=== PATIENT | female | born 1965 | race Caucasian/White ===

== ENCOUNTER 2017-12-20 15:22 | Emergency (ER) | payer OTHER ==
[2017-12-20] MEDS ORDERED: LORAZEPAM 1 MG TABLET ONE (16:09)
--- NOTE | 2017-12-20 16:58 | ER ---
Nurse's Notes [facility] Name: Jessenia Klein Age: 51 yrs Sex: Female : 1965 Arrival Date: 12/20/2017 Time: 15:35 Bed 25 Private MD: Diagnosis: Anxiety disorder, unspecified Presentation: 12/20 15:35 Presenting complaint: Patient states: :I am bipolar, and I feel like I am going manic, hb I am going into a panic.". Transition of care: patient was not received from another setting of care. Onset of symptoms was December 20, 2017. Care prior to arrival: None. 15:35 Method Of Arrival: Ambulatory hb 15:35 Acuity: JASMIN 3 hb 17:38 Initial Sepsis Screen: Does the patient meet any 2 criteria? No. Patient's initial aj1 sepsis screen is negative. Does the patient have a suspected source of infection? No. Patient's initial sepsis screen is negative. 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 N/A - Hysterectomy hb Historical: - Home Meds: 15:38 Creon 24,000-76,000 -120,000 unit Oral cpDR 3 times per day [Active]; Humalog Pen Sub-Q hb before meals [Active]; lisinopril 10 mg Oral tab 1 tab once daily [Active]; metformin 1,000 mg Oral TG24 1 tab 2 times per day [Active]; omeprazole 40 mg Oral cpDR 1 cap once daily [Active]; simvastatin 40 mg Oral tab 1 tab nightly [Active]; Toujeo SoloStar 300 unit/mL (1.5 mL) subcutaneous inpn 50 unit daily [Active]; - PMHx: 15:38 Diabetes - IDDM; fatty liver; Hyperlipidemia; Hypertension; kidney cancer; Anxiety; hb - PSHx: 15:38 right nephrectomy; hb - Immunization history:: Adult Immunizations up to date. - Social history:: Smoking status: Patient/guardian denies using tobacco. Screenin:06 Abuse screen: Denies threats or abuse. Denies injuries from another. Nutritional aj1 screening: No deficits noted. Tuberculosis screening: No symptoms or risk factors identified. 17:38 Fall Risk None identified. aj1 Assessment: 16:06 General: Appears in no apparent distress. comfortable, Behavior is cooperative, aj1 anxious. Pain: Denies pain. Neuro: Level of Consciousness is awake, alert, obeys commands, Oriented to person, place, time, situation, Speech is normal, Facial symmetry appears normal. Cardiovascular: Patient's skin is warm and dry. Respiratory: Airway is patent Respiratory effort is even, unlabored, Respiratory pattern is regular, symmetrical. GI: No signs and/or symptoms were reported involving the gastrointestinal system. : No signs and/or symptoms were reported regarding the genitourinary system. EENT: No signs and/or symptoms were reported regarding the EENT system. Derm: No signs and/or symptoms reported regarding the dermatologic system. Skin is pink, warm \\T\\ dry. normal. Musculoskeletal: No signs and/or symptoms reported regarding the musculoskeletal system. Circulation, motion, and sensation intact. 17:37 Reassessment: Patient appears in no apparent distress at this time. No changes from aj1 previously documented assessment. Patient and/or family updated on plan of care and expected duration. Pain level reassessed. Patient is alert, oriented x 3, equal unlabored respirations, skin warm/dry/pink. Vital Signs: 15:39 BP 168 / 101; Pulse 101; Resp 18; Temp 98.4; Pulse Ox 100% on R/A; Weight 85.28 kg; hb Height 5 ft. 6 in. (167.64 cm); Pain 8/10; 17:35 BP 136 / 86; Pulse 88; Resp 18; Pulse Ox 97% on R/A; aj1 15:39 Body Mass Index 30.34 (85.28 kg, 167.64 cm) hb ED Course: 15:35 Patient arrived in ED. hb 15:37 Triage completed. hb 15:39 Arm band placed on left wrist. hb 15:51 Willy Braxton NP is PHCP. pm1 15:[address] MD is Attending Physician. pm1 15:53 Anabel Sanchez, MELISSA is Primary Nurse. aj1 16:06 Patient has correct armband on for positive identification. Bed in low position. Call aj1 light in reach. Side rails up X 1. 16:06 No provider procedures requiring assistance completed. aj1 17:37 Patient did not have IV access during this emergency room visit. aj1 Administered Medications: 16:11 Drug: Ativan 1 mg Route: PO; aj1 17:38 Follow up: Response: No adverse reaction aj1 Outcome: 16:57 Discharge ordered by . pm1 17:38 Discharged to home ambulatory. aj1 17:38 Condition: good 17:38 Discharge instructions given to patient, Instructed on discharge instructions, follow up and referral plans. no drinking with medication, no driving heavy equipment, medication usage, Demonstrated understanding of instructions, follow-up care, medications, Prescriptions given X 1. 17:39 Patient left the ED. aj1 Signatures: Anabel Sanchez RN RN aj1 Willy Braxton NP PROTOCOL OFFICER pm1 Brittany Lyle RN RN hb Corrections: (The following items were deleted from the chart) 15:40 15:39 LMP N/A - Post-menopause hb hb
--- NOTE | 2017-12-20 16:58 | EDPHYS ---
Physician Documentation [facility] Name: Jessenia Klein Age: 51 yrs Sex: Female : 1965 Arrival Date: 12/20/2017 Time: 15:35 Bed 25 Private MD: ED Physician Hans Lane HPI: 12/20 16:00 This 51 yrs old Female presents to ER via Ambulatory with complaints of pm1 Anxiety. 16:00 The patient presents to the emergency department with anxiety, stressful situation at pm1 [facility] to get her license. Onset: The symptoms/episode began/occurred just prior to arrival. Past psychiatric history: Prior diagnosis: bipolar disorder. Associated signs and symptoms: Pertinent positives; anxiety, Pertinent negatives: hallucinations, homicidal ideation, suicide ideation. Severity of symptoms: in the emergency department the symptoms are unchanged. The patient has experienced similar episodes in the past, multiple times. Patient went to her PCP office to be evaluated and was sent to the ER for evaluation of her anxiety. Patient completed a stress test with her no bake molder at 1330 today and was told that it was fine. She then went to the [facility] to get her license and experienced stress that made her anxious.. 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 N/A - Hysterectomy hb Historical: - Home Meds: 15:38 Creon 24,000-76,000 -120,000 unit Oral cpDR 3 times per day [Active]; Humalog Pen Sub-Q hb before meals [Active]; lisinopril 10 mg Oral tab 1 tab once daily [Active]; metformin 1,000 mg Oral TG24 1 tab 2 times per day [Active]; omeprazole 40 mg Oral cpDR 1 cap once daily [Active]; simvastatin 40 mg Oral tab 1 tab nightly [Active]; Toujeo SoloStar 300 unit/mL (1.5 mL) subcutaneous inpn 50 unit daily [Active]; - PMHx: 15:38 Diabetes - IDDM; fatty liver; Hyperlipidemia; Hypertension; kidney cancer; Anxiety; hb - PSHx: 15:38 right nephrectomy; hb - Immunization history:: Adult Immunizations up to date. - Social history:: Smoking status: Patient/guardian denies using tobacco. ROS: 16:00 Constitutional: Negative for fever, chills, and weight loss, Eyes: Negative for injury, pm1 pain, redness, and discharge, ENT: Negative for injury, pain, and discharge, Neck: Negative for injury, pain, and swelling, Cardiovascular: Negative for chest pain, palpitations, and edema, Respiratory: Negative for shortness of breath, cough, wheezing, and pleuritic chest pain, Abdomen/GI: Negative for abdominal pain, nausea, vomiting, diarrhea, and constipation, Back: Negative for injury and pain, : Negative for injury, bleeding, discharge, and swelling, MS/Extremity: Negative for injury and deformity, Skin: Negative for injury, rash, and discoloration, Neuro: Negative for headache, weakness, numbness, tingling, and seizure. 16:00 Psych: Positive for anxiety, Negative for depression, auditory hallucinations, visual hallucinations, homicidal ideation, suicidal ideation. Exam: 16:00 Constitutional: This is a well developed, well nourished patient who is awake, alert, pm1 and in no acute distress. Head/Face: Normocephalic, atraumatic. Eyes: Pupils equal round and reactive to light, extra-ocular motions intact. Lids and lashes normal. Conjunctiva and sclera are non-icteric and not injected. Cornea within normal limits. Periorbital areas with no swelling, redness, or edema. ENT: Nares patent. No nasal discharge, no septal abnormalities noted. Tympanic membranes are normal and external auditory canals are clear. Oropharynx with no redness, swelling, or masses, exudates, or evidence of obstruction, uvula midline. Mucous membranes moist. Neck: Trachea midline, no thyromegaly or masses palpated, and no cervical lymphadenopathy. Supple, full range of motion without nuchal rigidity, or vertebral point tenderness. No Meningismus. Chest/axilla: Normal chest wall appearance and motion. Nontender with no deformity. No lesions are appreciated. Cardiovascular: Regular rate and rhythm with a normal S1 and S2. No gallops, murmurs, or rubs. Normal PMI, no JVD. No pulse deficits. Respiratory: Lungs have equal breath sounds bilaterally, clear to auscultation and percussion. No rales, rhonchi or wheezes noted. No increased work of breathing, no retractions or nasal flaring. Abdomen/GI: Soft, non-tender, with normal bowel sounds. No distension or tympany. No guarding or rebound. No evidence of tenderness throughout. Back: No spinal tenderness. No costovertebral tenderness. Full range of motion. Skin: Warm, dry with normal turgor. Normal color with no rashes, no lesions, and no evidence of cellulitis. MS/ Extremity: Pulses equal, no cyanosis. Neurovascular intact. Full, normal range of motion. 16:00 Neuro: Awake and alert, GCS 15, oriented to person, place, time, and situation. Cranial nerves II-XII grossly intact. Motor strength 5/5 in all extremities. Sensory grossly intact. Cerebellar exam normal. Normal gait. 16:00 Psych: Behavior/mood is anxious, Affect is animated. Vital Signs: 15:39 BP 168 / 101; Pulse 101; Resp 18; Temp 98.4; Pulse Ox 100% on R/A; Weight 85.28 kg; hb Height 5 ft. 6 in. (167.64 cm); Pain 8/10; 17:35 BP 136 / 86; Pulse 88; Resp 18; Pulse Ox 97% on R/A; aj1 15:39 Body Mass Index 30.34 (85.28 kg, 167.64 cm) hb MDM: 15:54 Patient medically screened. pm1 16:56 Data reviewed: vital signs. Data interpreted: Pulse oximetry: on room air is 100 %. pm1 Interpretation: normal. Counseling: I had a detailed discussion with the patient and/or guardian regarding: the historical points, exam findings, and any diagnostic results supporting the discharge/admit diagnosis, the need for outpatient follow up, to return to the emergency department if symptoms worsen or persist or if there are any questions or concerns that arise at home. 17:00 ED course: Patient feeling less anxious with medication given. Happy with treatment and pm1 ready to go home.. Administered Medications: 16:11 Drug: Ativan 1 mg Route: PO; aj1 17:38 Follow up: Response: No adverse reaction aj1 Disposition: 12/20/17 16:57 Discharged to Home. Impression: Anxiety disorder, unspecified. - Condition is Stable. - Discharge Instructions: Panic Attacks. - Prescriptions for Valium 2 mg Oral Tablet - take 1 tablet by ORAL route every 8 hours As needed; 10 tablet. - Medication Reconciliation Form, Thank You Letter form. - Follow up: Emergency Department; When: As needed; Reason: Worsening of condition. Follow up: Private Physician; When: 2 - 3 days; Reason: Recheck today's complaints, Continuance of care, Re-evaluation by your physician. - Problem is new. - Symptoms have improved. Addendum: 01/04/2018 19:49 Co-signature as Attending Physician, Hans Lane MD I agree with the assessment and k dr plan of care. Signatures: Anabel Sanchez RN RN aj1 Hans Lane MD MD [facility] Willy Braxton MUSIC SUPERVISOR MUSIC SUPERVISOR pm1 Brittany Lyle RN RN Corrections: (The following items were deleted from the chart) 12/20 17:39 16:57 12/20/2017 16:57 Discharged to Home. Impression: Anxiety disorder, unspecified. aj1 Condition is Stable. Forms are Medication Reconciliation Form, Thank You Letter, Antibiotic Education, Prescription Opioid Use. Follow up: Emergency Department; When: As needed; Reason: Worsening of condition. Follow up: Private Physician; When: 2 - 3 days; Reason: Recheck today's complaints, Continuance of care, Re-evaluation by your physician. Problem is new. Symptoms have improved. pm1
[2017-12-20 17:49] VITALS: BP 168/101; TEMP 98.4; O2SAT 100
== END 2017-12-20 17:39 | disposition home or self-care (01) ==
LOC: ER 15:22
DX: F41.9 Anxiety disorder, unspecified (principal); E11.9 Type 2 diabetes mellitus without complications; E78.5 Hyperlipidemia, unspecified; I10 Essential (primary) hypertension
CPT/HCPCS: 99283

== ENCOUNTER 2018-03-02 04:28 | Emergency (ER) | payer OTHER ==
[2018-03-02] MEDS ORDERED: ONDANSETRON 4 MG/2 ML VIAL ONE (04:55)
[2018-03-02] MEDS ORDERED: DIAZEPAM 5 MG TABLET ONE (04:55)
[2018-03-02] MEDS ORDERED: KETOROLAC 30 MG/ML INJ ONE (04:55)
[2018-03-02] MEDS ORDERED: MORPHINE 4 MG/ML SYR ONE ×2 (04:55→06:07)
[2018-03-02] MEDS ORDERED: DEXAMETHASONE 10 MG/ML VIAL ONE (04:55)
[2018-03-02] MEDS ORDERED: NA CHLORIDE 0.9% 1,000 ML ONE (04:55)
[2018-03-02 05:02] LABS: Absolute Lymphocytes (CBC) 5.7 K/uL (0.7-4.9); Absolute Monocytes 0.9 K/uL (0.1-1.3); Absolute Neutrophil 7.9 K/uL (1.8-8.0); Basophils % 0.6 % (0-1.3); Eosinophils % 1.3 % (0-4.4); Hematocrit 40.3 % (36.0-45.0); Lymphocytes % 38.8 % (15.3-44.8); MCH 29.9 pg (27.0-35.0); MCV 90.4 fL (80-100); MPV 7.9 fL (7.6-11.3); Monocytes % 5.9 % (3.3-12.3); RBC Red Blood Cell Count 4.46 M/uL (3.86-4.86)
[2018-03-02 05:21] LABS: Albumin 3.7 g/dL (3.4-5.0); Bilirubin Total 0.2 mg/dL (0.2-1.0); Potassium 4.1 mmol/L (3.5-5.1); Protein, Total 7.5 g/dL (6.4-8.2)
[2018-03-02] MEDS ORDERED: HYDROMORPHONE HCL 1 MG/ML INJ ONE (07:20)
[2018-03-02] MEDS ORDERED: PROMETHAZINE 25 MG/ML VIAL ONE (07:23)
--- NOTE | 2018-03-02 07:43 | EDPHYS ---
Physician Documentation [facility] Name: Jessenia Klein Age: 52 yrs Sex: Female : 1965 Arrival Date: 03/02/2018 Time: 04:29 Bed 7 Private MD: ED Physician Chi Adair HPI: 03/02 04:43 This 52 yrs old Female presents to ER via Ambulatory with complaints of NECK citlali PAIN. 04:43 The patient or guardian complains of decreased range of motion, pain. The symptoms are citlali located at the cervical spine. Onset: The symptoms/episode began/occurred 2 day(s) ago. Context: The problem was sustained at an unknown location. The patient complains of pain to the left side of the back of head, left occipital area, left base of the skull, right side of the back of head, right occipital area and right base of the skull. Onset: The symptoms/episode began/occurred 2 day(s) ago. 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 N/A - Hysterectomy lp1 Historical: - Allergies: 04:44 No Known Allergies; fc - Home Meds: 04:44 alprazolam 0.5 mg Oral tab 1 tab as needed [Active]; Ambien 12.5 MG Oral 1 tab nightly fc [Active]; Creon 24,000-76,000 -120,000 unit Oral cpDR 3 times per day [Active]; lisinopril 10 mg Oral tab 1 tab once daily [Active]; metformin 1,000 mg Oral TG24 1 tab 2 times per day [Active]; omeprazole 40 mg Oral cpDR 1 cap once daily [Active]; simvastatin 40 mg Oral tab 1 tab nightly [Active]; Valium 5 mg Oral tab as needed [Active]; Toujeo SoloStar 300 unit/mL (1.5 mL) subcutaneous inpn 50 unit daily [Active]; Zoloft 100 mg Oral tab 2 tabs once daily [Active]; Humalog Pen Sub-Q before meals [Active]; - PMHx: 04:44 Anxiety; Diabetes - IDDM; fatty liver; Hyperlipidemia; Hypertension; kidney cancer; fc - PSHx: 04:44 right nephrectomy; fc 04:58 Hysterectomy; lp1 - Immunization history:: Last tetanus immunization: up to date. - Social history:: Smoking status: Patient/guardian denies using tobacco. - Ebola Screening: : Patient negative for fever greater than or equal to 101.5 degrees Fahrenheit, and additional compatible Ebola Virus Disease symptoms Patient denies exposure to infectious person Patient denies travel to an Ebola-affected area in the 21 days before illness onset. - Family history:: not pertinent. ROS: 04:43 Constitutional: Negative for fever, chills, and weight loss, Eyes: Negative for injury, citlali pain, redness, and discharge, ENT: Negative for injury, pain, and discharge, Cardiovascular: Negative for chest pain, palpitations, and edema, Respiratory: Negative for shortness of breath, cough, wheezing, and pleuritic chest pain, Abdomen/GI: Negative for abdominal pain, nausea, vomiting, diarrhea, and constipation, Back: Negative for injury and pain, : Negative for injury, bleeding, discharge, and swelling, MS/Extremity: Negative for injury and deformity, Skin: Negative for injury, rash, and discoloration, Neuro: Negative for headache, weakness, numbness, tingling, and seizure, Psych: Negative for depression, anxiety, suicide ideation, homicidal ideation, and hallucinations, Allergy/Immunology: Negative for hives, rash, and allergies, Endocrine: Negative for neck swelling, polydipsia, polyuria, polyphagia, and marked weight changes, Hematologic/Lymphatic: Negative for swollen nodes, abnormal bleeding, and unusual bruising. 07:14 Neuro: Positive for headache, gradual onset, past neck injury, extent unknown. pain citlali with rom, all directions. Exam: 04:43 Constitutional: This is a well developed, well nourished patient who is awake, alert, citlali and in no acute distress. Head/Face: Normocephalic, atraumatic. Eyes: Pupils equal round and reactive to light, extra-ocular motions intact. Lids and lashes normal. Conjunctiva and sclera are non-icteric and not injected. Cornea within normal limits. Periorbital areas with no swelling, redness, or edema. ENT: Nares patent. No nasal discharge, no septal abnormalities noted. Tympanic membranes are normal and external auditory canals are clear. Oropharynx with no redness, swelling, or masses, exudates, or evidence of obstruction, uvula midline. Mucous membranes moist. Chest/axilla: Normal chest wall appearance and motion. Nontender with no deformity. No lesions are appreciated. Cardiovascular: Regular rate and rhythm with a normal S1 and S2. No gallops, murmurs, or rubs. Normal PMI, no JVD. No pulse deficits. Respiratory: Lungs have equal breath sounds bilaterally, clear to auscultation and percussion. No rales, rhonchi or wheezes noted. No increased work of breathing, no retractions or nasal flaring. Abdomen/GI: Soft, non-tender, with normal bowel sounds. No distension or tympany. No guarding or rebound. No evidence of tenderness throughout. Back: No spinal tenderness. No costovertebral tenderness. Full range of motion. Female : Normal external genitalia. Skin: Warm, dry with normal turgor. Normal color with no rashes, no lesions, and no evidence of cellulitis. MS/ Extremity: Pulses equal, no cyanosis. Neurovascular intact. Full, normal range of motion. Neuro: Awake and alert, GCS 15, oriented to person, place, time, and situation. Cranial nerves II-XII grossly intact. Motor strength 5/5 in all extremities. Sensory grossly intact. Cerebellar exam normal. Normal gait. Psych: Awake, alert, with orientation to person, place and time. Behavior, mood, and affect are within normal limits. 04:43 Neck: External neck: is normal, C-spine: no acute changes, Trachea: is midline with no obvious abnormalities, ROM/movement: is normal. Vital Signs: 04:40 Weight 132.9 kg (R); Height 5 ft. 6 in. (167.64 cm) (R); Pain 10/10; fc 04:43 BP 141 / 94; Pulse 91; Resp 18; Temp 98.6(O); Pulse Ox 98% on R/A; Pain 10/10; lp1 06:19 BP 137 / 83; Pulse 81; Resp 16; Pulse Ox 94% on R/A; lp1 08:03 BP 125 / 81; Pulse 80; Resp 18; Pulse Ox 100% ; sv 04:40 Body Mass Index 47.29 (132.90 kg, 167.64 cm) MDM: 04:36 Patient medically screened. [facility] 04:43 Data reviewed: vital signs, nurses notes, lab test result(s), radiologic studies, CT citlali scan. 03/02 04:42 Order name: CBC with Diff; Complete Time: 05:09 citlali 07/01 04:42 Order name: Comprehensive Metabolic Panel; Complete Time: 05:38 [facility] 03/02 04:42 Order name: CT Head C Spine [facility] 03/02 04:42 Order name: Urine Culture [facility] 03/02 07:14 Order name: Urine Dipstick--Ancillary (enter results) [facility] 03/02 04:42 Order name: Urine Dipstick-Ancillary (obtain specimen); Complete Time: 07:01 [facility] Administered Medications: 05:05 Drug: Valium 5 mg Route: PO; bs1 06:12 Follow up: Response: No adverse reaction lp1 05:05 Drug: morphine 4 mg Route: IVP; Site: right forearm; bs1 06:12 Follow up: Response: Pain is unchanged, physician notified lp1 05:05 Drug: Zofran 4 mg Route: IVP; Site: right forearm; bs1 06:12 Follow up: Response: No adverse reaction lp1 05:05 Drug: Decadron - Dexamethasone 10 mg Route: IVP; Site: right forearm; bs1 06:12 Follow up: Response: No adverse reaction lp1 05:06 Drug: NS 0.9% 1000 ml Route: IV; Rate: 1 bolus; Site: right forearm; bs1 06:51 Follow up: IV Status: Completed infusion; IV Intake: 1000ml lp1 05:06 Drug: TORadol 30 mg Route: IVP; Site: right forearm; bs1 06:12 Follow up: Response: No adverse reaction; Pain is unchanged, physician notified lp1 06:12 Drug: morphine 4 mg Route: IVP; Site: right forearm; lp1 06:51 Follow up: Response: Pain is unchanged, physician notified lp1 07:25 Drug: Dilaudid 1 mg Route: IVP; Site: right antecubital; sg 08:04 Follow up: Response: No adverse reaction sv 07:25 Drug: Phenergan 12.5 mg Route: IVP; Site: right antecubital; sg 08:04 Follow up: Response: No adverse reaction sv Disposition: 03/02/18 07:42 Discharged to Home. Impression: Strain of muscle, fascia and tendon at neck level, Headache, Type 1 diabetes mellitus. - Condition is Stable. - Discharge Instructions: Cervical Radiculopathy, Type 1 Diabetes Mellitus, Adult, General Headache Without Cause, Cervical Sprain, Diabetes Mellitus and Food, General Headache Without Cause, [id number], Cervical Radiculopathy, [id number]. - Prescriptions for Tylenol- Codeine #3 300-30 mg Oral Tablet - take 2 tablets by ORAL route every 6 hours As needed; 26 tablet. Valium 2 mg Oral Tablet - take 1 tablet by ORAL route every 6 hours As needed; 20 tablet. Medrol (Lee) 4 mg Oral Tablets, Dose Pack - take 1 tablet by ORAL route as directed - follow package instructions; 1 packet. Motrin IB 200 mg Oral Tablet - take 2 tablet by ORAL route every 6 hours As needed as needed with food; 30 tablet. - Medication Reconciliation Form, Thank You Letter, Antibiotic Education, Prescription Opioid Use form. - Follow up: Private Physician; When: 2 - 3 days; Reason: Recheck today's complaints, Continuance of care, Re-evaluation by your physician. Follow up: Bob Pearl; When: 2 - 3 days; Reason: Recheck today's complaints, Re-evaluation by your physician. - Problem is new. - Symptoms have improved. Signatures: Dispatcher [employer] EDMS Tia Vu RN RN Kelby Rico RN Chi Braswell MD MD cha Therrien, Shelly, DOORKEEPER-C DOORKEEPER-Csnw Mila Parikh, RN RN Renee Santana RN RN lp1 Caprice Brady, RN RN bs1 Corrections: (The following items were deleted from the chart) 08:04 07:42 03/02/2018 07:42 Discharged to Home. Impression: Strain of muscle, fascia and sv tendon at neck level; Headache; Type 1 diabetes mellitus. Condition is Stable. Discharge Instructions: Cervical Radiculopathy, General Headache Without Cause, Cervical Sprain, Cervical Sprain, [id number], General Headache Without Cause, [id number], Cervical Radiculopathy, [id number], Type 1 Diabetes Mellitus, Adult, Diabetes Mellitus and Food. Prescriptions for Tylenol-Codeine #3 300-30 mg Oral Tablet - take 2 tablets by ORAL route every 6 hours As needed; 26 tablet, Valium 2 mg Oral Tablet - take 1 tablet by ORAL route every 6 hours As needed; 20 tablet, Medrol (Lee) 4 mg Oral Tablets, Dose Pack - take 1 tablet by ORAL route as directed - follow package instructions; 1 packet, Motrin IB 200 mg Oral Tablet - take 2 tablet by ORAL route every 6 hours As needed as needed with food; 30 tablet. and Forms are Medication Reconciliation Form, Thank You Letter, Antibiotic Education, Prescription Opioid Use. Follow up: Private Physician; When: 2 - 3 days; Reason: Recheck today's complaints, Continuance of care, Re-evaluation by your physician. Follow up: Bob Pearl; When: 2 - 3 days; Reason: Recheck today's complaints, Re-evaluation by your physician. Problem is new. Symptoms have improved. snw
--- NOTE | 2018-03-02 07:43 | ER ---
Nurse's Notes [facility] Name: Jessenia Klein Age: 52 yrs Sex: Female : 1965 Arrival Date: 03/02/2018 Time: 04:29 Bed 7 Private MD: Diagnosis: Strain of muscle, fascia and tendon at neck level;Headache;Type 1 diabetes mellitus Presentation: 03/02 04:40 Presenting complaint: Patient states: that she woke up yesterday am with a stiff neck. fc It has progressively gotten worse and now she cannot even turn her head. Transition of care: patient was not received from another setting of care. Onset of symptoms was March 01, 2018. Risk Assessment: Do you want to hurt yourself or someone else? Patient reports no desire to harm self or others. Initial Sepsis Screen: Does the patient meet any 2 criteria? No. Patient's initial sepsis screen is negative. Does the patient have a suspected source of infection? No. Patient's initial sepsis screen is negative. Care prior to arrival: None. 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:57 LMP N/A - Hysterectomy lp1 Historical: - Allergies: 04:44 No Known Allergies; fc - Home Meds: 04:44 alprazolam 0.5 mg Oral tab 1 tab as needed [Active]; Ambien 12.5 MG Oral 1 tab nightly fc [Active]; Creon 24,000-76,000 -120,000 unit Oral cpDR 3 times per day [Active]; lisinopril 10 mg Oral tab 1 tab once daily [Active]; metformin 1,000 mg Oral TG24 1 tab 2 times per day [Active]; omeprazole 40 mg Oral cpDR 1 cap once daily [Active]; simvastatin 40 mg Oral tab 1 tab nightly [Active]; Valium 5 mg Oral tab as needed [Active]; Toujeo SoloStar 300 unit/mL (1.5 mL) subcutaneous inpn 50 unit daily [Active]; Zoloft 100 mg Oral tab 2 tabs once daily [Active]; Humalog Pen Sub-Q before meals [Active]; - PMHx: 04:44 Anxiety; Diabetes - IDDM; fatty liver; Hyperlipidemia; Hypertension; kidney cancer; fc - PSHx: 04:44 right nephrectomy; fc 04:58 Hysterectomy; lp1 - Immunization history:: Last tetanus immunization: up to date. - Social history:: Smoking status: Patient/guardian denies using tobacco. - Ebola Screening: : Patient negative for fever greater than or equal to 101.5 degrees Fahrenheit, and additional compatible Ebola Virus Disease symptoms Patient denies exposure to infectious person Patient denies travel to an Ebola-affected area in the 21 days before illness onset. - Family history:: not pertinent. Screenin:42 Abuse screen: Denies threats or abuse. Nutritional screening: No deficits noted. fc Tuberculosis screening: No symptoms or risk factors identified. Fall Risk None identified. Assessment: 04:58 General: Appears uncomfortable, Behavior is crying. Pain: Complains of pain in head, lp1 posterior neck Pain currently is 10 out of 10 on a pain scale. Noted to be grimacing, guarding. Neuro: Level of Consciousness is awake, alert, obeys commands, Oriented to person, place, time, situation, Gait is steady, Pupils are PERRLA, Reports headache in entire. Cardiovascular: Patient's skin is warm and dry. Respiratory: Respiratory effort is even, unlabored. GI: No signs and/or symptoms were reported involving the gastrointestinal system. : No signs and/or symptoms were reported regarding the genitourinary system. EENT: No signs and/or symptoms were reported regarding the EENT system. Derm: Skin is pink, warm \T\ dry. Musculoskeletal: Circulation, motion, and sensation intact. Reports pain in neck. 05:54 Reassessment: Patient returned from CT, grimacing, moaning in pain to head. lp1 06:51 Reassessment: Patient states pain unchanged, continuing to grimace, moan from pain to lp1 posterior neck radiating to head. 07:10 Reassessment: Patient appears in no apparent distress at this time. Patient and/or sg family updated on plan of care and expected duration. Pain level reassessed. at bedside Patient states symptoms have not improved. Vital Signs: 04:40 Weight 132.9 kg (R); Height 5 ft. 6 in. (167.64 cm) (R); Pain 10/10; fc 04:43 BP 141 / 94; Pulse 91; Resp 18; Temp 98.6(O); Pulse Ox 98% on R/A; Pain 10/10; lp1 06:19 BP 137 / 83; Pulse 81; Resp 16; Pulse Ox 94% on R/A; lp1 08:03 BP 125 / 81; Pulse 80; Resp 18; Pulse Ox 100% ; sv 04:40 Body Mass Index 47.29 (132.90 kg, 167.64 cm) ED Course: 04:29 Patient arrived in ED. es 04:36 Chi Adair MD is Attending Physician. citlali 04:40 Arm band placed on Patient placed in an exam room, on a stretcher. fc 04:41 Triage completed. fc 04:42 Patient has correct armband on for positive identification. Bed in low position. Call light in reach. 04:43 Renee Asher, RN is Primary Nurse. lp1 04:50 Inserted saline lock: 20 gauge in right forearm, using aseptic technique. Blood lp1 collected. 05:40 CT Head C Spine In Process Unspecified. EDMS 05:47 CT completed. Patient tolerated procedure well. Patient moved back from CT. kw1 07:10 Urine collected: clean catch specimen, clear. dh3 07:22 Karolina Isbell FNP-C is PHCP. snw 07:42 Bob Pearl MD is Referral Physician. snw 08:03 No provider procedures requiring assistance completed. IV discontinued, intact, sv bleeding controlled, No redness/swelling at site. Administered Medications: 05:05 Drug: Valium 5 mg Route: PO; bs1 06:12 Follow up: Response: No adverse reaction lp1 05:05 Drug: morphine 4 mg Route: IVP; Site: right forearm; bs1 06:12 Follow up: Response: Pain is unchanged, physician notified lp1 05:05 Drug: Zofran 4 mg Route: IVP; Site: right forearm; bs1 06:12 Follow up: Response: No adverse reaction lp1 05:05 Drug: Decadron - Dexamethasone 10 mg Route: IVP; Site: right forearm; bs1 06:12 Follow up: Response: No adverse reaction lp1 05:06 Drug: NS 0.9% 1000 ml Route: IV; Rate: 1 bolus; Site: right forearm; bs1 06:51 Follow up: IV Status: Completed infusion; IV Intake: 1000ml lp1 05:06 Drug: TORadol 30 mg Route: IVP; Site: right forearm; bs1 06:12 Follow up: Response: No adverse reaction; Pain is unchanged, physician notified lp1 06:12 Drug: morphine 4 mg Route: IVP; Site: right forearm; lp1 06:51 Follow up: Response: Pain is unchanged, physician notified lp1 07:25 Drug: Dilaudid 1 mg Route: IVP; Site: right antecubital; sg 08:04 Follow up: Response: No adverse reaction sv 07:25 Drug: Phenergan 12.5 mg Route: IVP; Site: right antecubital; sg 08:04 Follow up: Response: No adverse reaction sv Intake: 06:51 IV: 1000ml; Total: 1000ml. lp1 Outcome: 07:42 Discharge ordered by . snw 08:03 Discharged to home ambulatory, with family. sv 08:03 Condition: stable 08:03 Discharge instructions given to patient, Instructed on discharge instructions, follow up and referral plans. no drinking with medication, no driving heavy equipment, medication usage, Demonstrated understanding of instructions, follow-up care, medications, Prescriptions given X 4. 08:04 Patient left the ED. sv Signatures: Dispatcher [employer] Tia Martin RN MELISSA Kelby Terry RN Chi Braswell MD MD cha Therrien, Shelly, DAIRY HUSBANDRY TEACHER-C DAIRY HUSBANDRY TEACHER-Csnw Chelsea Marquez Felicia RN MELISSA Renee Asher RN RN lp1 Lo Howard Kimberly [facility] Caprice Brady RN RN bs1
[2018-03-02 08:09] VITALS: TEMP 98.6
[2018-03-02 08:12] VITALS: BP 125/81; O2SAT 100
[2018-03-02 08:20] LABS: Urine Blood NEGATIVE (NEG); Urine Glucose 2+ (NEG); Urine Protein NEGATIVE (NEG); Urine Specific Gravity 1.025 (1.005-1.030)
--- NOTE | 2018-03-02 11:06 | RAD REPORT ---
EXAM DESCRIPTION: CT - [id number] - 03/02/2018 8:27 am CLINICAL HISTORY: Trauma, head and neck injury. PAIN COMPARISON: No comparisons TECHNIQUE: Axial 5 mm thick images of the head were obtained. Axial 2 mm thick images of the cervical spine were obtained with sagittal and coronal reconstruction images generated and reviewed. All CT scans are performed using dose optimization technique as appropriate and may include automated exposure control or mA/KV adjustment according to patient size. FINDINGS: CT HEAD WITHOUT CONTRAST: No acute hemorrhage, hydrocephalus or extra-axial collection is identified.No areas of brain edema or midline shift. The paranasal sinuses and mastoids are clear.The calvarium is intact. CT CERVICAL SPINE WITHOUT CONTRAST: No fracture or subluxation.Moderate lower cervical spondylosis.No prevertebral soft tissues swelling is identified. IMPRESSION: No acute intracranial or cervical spine findings. Moderate lower cervical spondylosis.
== END 2018-03-02 08:04 | disposition home or self-care (01) ==
LOC: ER 04:28
DX: S16.1XXA Strain of muscle, fascia and tendon at neck level, initial encounter (principal); R51 Headache; E10.9 Type 1 diabetes mellitus without complications; I10 Essential (primary) hypertension; E78.5 Hyperlipidemia, unspecified; F41.9 Anxiety disorder, unspecified; Z79.4 Long term (current) use of insulin; Z85.528 Personal history of other malignant neoplasm of kidney
CPT/HCPCS: 36415; 70450; 72125; 80053; 81003; 85025; 87086; 87088; 99284; J1100; J1170; J2405; J2550; J7030

== ENCOUNTER 2018-06-12 15:55 | Emergency (ER) | payer OTHER ==
--- NOTE | 2018-06-12 17:01 | RAD REPORT ---
EXAM DESCRIPTION: CT - Stone Protocol - 06/12/2018 4:49 pm CLINICAL HISTORY: Abdominal pain. Lower abdominal pain. COMPARISON: August 2017 TECHNIQUE: Computed axial tomography of the abdomen pelvis was obtained without oral or IV contrast. Lack of IV and oral contrast limits evaluation of solid organs, bowel, and vessels. Coronal reformat brenda images were obtained and reviewed. All CT scans are performed using dose optimization technique as appropriate and may include automated exposure control or mA/KV adjustment according to patient size. FINDINGS: A renal calculus is not seen. An ureteral calculus is not noted. A bladder calculus is not present. The right kidney has been resected. A tiny umbilical hernia contains fat A hysterectomy has been performed The liver, spleen, pancreas and adrenals appear grossly normal There is no evidence of diverticulitis. The appendix appears normal Spondylosis involves lumbar spine resulting in spinal stenosis IMPRESSION: Negative for a genitourinary calculus
[2018-06-12 17:26] LABS: Absolute Lymphocytes (CBC) 5.6 K/uL (0.7-4.9); Absolute Monocytes 0.7 K/uL (0.1-1.3); Absolute Neutrophil 5.5 K/uL (1.8-8.0); Basophils % 0.5 % (0-1.3); Eosinophils % 1.3 % (0-4.4); Hematocrit 38.1 % (36.0-45.0); Lymphocytes % 46.5 % (15.3-44.8); MCH 31.2 pg (27.0-35.0); MCV 90.2 fL (80-100); MPV 8.2 fL (7.6-11.3); Monocytes % 6.1 % (3.3-12.3); RBC Red Blood Cell Count 4.23 M/uL (3.86-4.86)
[2018-06-12] MEDS ORDERED: DICYCLOMINE HCL 10 MG CAP ONE (17:27)
[2018-06-12] MEDS ORDERED: ONDANSETRON 4 MG/2 ML VIAL ONE (17:27)
[2018-06-12 17:53] LABS: ALT/SGPT 28 U/L (12-78); AST/SGOT 11 U/L (15-37); Albumin 3.7 g/dL (3.4-5.0); Alkaline Phosphatase 121 U/L (45-117); BUN Blood Urea Nitrogen 21 mg/dL (7-18); Bicarbonate 27 mmol/L (21-32); Bilirubin Direct < 0.1 mg/dL (0-0.2); Bilirubin Total 0.2 mg/dL (0.2-1.0); Glucose Level 224 mg/dL (74-106); Lipase 315 U/L (73-393); Magnesium 2.3 mg/dL (1.8-2.4); Protein, Total 7.4 g/dL (6.4-8.2); Sodium Level 140 mmol/L (136-145)
[2018-06-12 18:27] LABS: Urine Bacteria <20 /HPF (<20); Urine RBC <5 /HPF (NONE SEEN)
[2018-06-12 18:28] LABS: Urine Culture Reflex Order NOT NEEDED
[2018-06-12 18:48] LABS: Urine Blood NEGATIVE (NEG); Urine Glucose 2+ (NEG); Urine Protein NEGATIVE (NEG)
[2018-06-12] MEDS ORDERED: CYCLOBENZAPRINE 10 MG TAB ONE (18:59)
--- NOTE | 2018-06-12 19:05 | ER ---
Nurse's Notes [facility] Name: Jessenia Klein Age: 52 yrs Sex: Female : 1965 Arrival Date: 06/12/2018 Time: 15:57 Bed 13 Private MD: Denzel Maddox Diagnosis: Low back pain-Low;Other abdominal pain-Left Presentation: 06/12 16:09 Presenting complaint: Patient states: She has been having lower back pain that wraps aj1 around to her RLQ and rectal pain for the past 2 weeks. Patient states that she was recently started on Metformin, and she figured that was what was causing her pain so she stopped taking it, but her pain has continued. States she has an appointment tomorrow with her GI for the rectal pain, but is concerned that the metformin messed up her kidney. Patient denies dysuria, or urinary frequency. Denies fever. Transition of care: patient was not received from another setting of care. Onset of symptoms was May 2018. Risk Assessment: Do you want to hurt yourself or someone else? Patient reports no desire to harm self or others. Initial Sepsis Screen: Does the patient meet any 2 criteria? No. Patient's initial sepsis screen is negative. Does the patient have a suspected source of infection? No. Patient's initial sepsis screen is negative. Care prior to arrival: None. 16:09 Method Of Arrival: Ambulatory aj1 16:09 Acuity: JASMIN 3 aj1 Triage Assessment: 16:16 General: Appears in no apparent distress. uncomfortable, Behavior is cooperative, aj1 anxious. Pain: Complains of pain in left low back. 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 - Social history:: Smoking status: Patient/guardian denies using tobacco. - Ebola Screening: : Patient denies travel to an Ebola-affected area in the 21 days before illness onset. Screenin:19 Abuse screen: Denies threats or abuse. Denies injuries from another. Nutritional aj1 screening: No deficits noted. Tuberculosis screening: No symptoms or risk factors identified. 19:00 Fall Risk None identified. jb4 Assessment: 16:19 General: Appears in no apparent distress. uncomfortable, Behavior is cooperative, aj1 anxious. Pain: Complains of pain in left low back Pain radiates to left lower quadrant Pain currently is 7 out of 10 on a pain scale. Quality of pain is described as sharp, Pain began 2 and a half weeks ago Is intermittent, Alleviated by nothing. Aggravated by movement. Neuro: Level of Consciousness is awake, alert, obeys commands. Cardiovascular: Patient's skin is warm and dry. Respiratory: Airway is patent Respiratory effort is even, unlabored, Respiratory pattern is regular, symmetrical. GI: No signs and/or symptoms were reported involving the gastrointestinal system. : Denies burning with urination, urinary frequency. EENT: No signs and/or symptoms were reported regarding the EENT system. Derm: No signs and/or symptoms reported regarding the dermatologic system. Skin is pink, warm \T\ dry. normal. Musculoskeletal: No signs and/or symptoms reported regarding the musculoskeletal system. Circulation, motion, and sensation intact. 17:15 Reassessment: Patient appears in no apparent distress at this time. No changes from aj1 previously documented assessment. Patient and/or family updated on plan of care and expected duration. Pain level reassessed. Patient is alert, oriented x 3, equal unlabored respirations, skin warm/dry/pink. 18:10 Reassessment: Patient and/or family updated on plan of care and expected duration. Pain aj1 level reassessed. General: Appears in no apparent distress. comfortable, Behavior is calm, cooperative, appropriate for age. Neuro: Level of Consciousness is awake, alert, obeys commands. Cardiovascular: Patient's skin is warm and dry. Respiratory: Airway is patent Respiratory effort is even, unlabored, Respiratory pattern is regular, symmetrical. Derm: Skin is pink, warm \T\ dry. normal. Musculoskeletal: Circulation, motion, and sensation intact. 19:00 Reassessment: Patient appears in no apparent distress at this time. No changes from jb4 previously documented assessment. Patient and/or family updated on plan of care and expected duration. Pain level reassessed. Patient is alert, oriented x 3, equal unlabored respirations, skin warm/dry/pink. 19:50 Reassessment: Patient appears in no apparent distress at this time. No changes from jb4 previously documented assessment. Patient and/or family updated on plan of care and expected duration. Pain level reassessed. Patient is alert, oriented x 3, equal unlabored respirations, skin warm/dry/pink. discussed D/c, F/u with pt, denies questions or concerns. Vital Signs: 16:16 BP 141 / 85; Pulse 85; Resp 18; Temp 97.2(TE); Pulse Ox 97% on R/A; Weight 88.45 kg aj1 (R); Height 5 ft. 5 in. (165.10 cm) (R); Pain 7/10; 18:13 BP 128 / 80; Pulse 87; Resp 18; Pulse Ox 100% on R/A; aj1 19:30 BP 125 / 77; Pulse 70; Resp 18; Pulse Ox 99% on R/A; jb4 16:16 Body Mass Index 32.45 (88.45 kg, 165.10 cm) aj1 ED Course: 15:57 Patient arrived in ED. as 15:58 Denzel Maddox DO is Private Physician. as 15:59 Chi Mckinney PA is PHCP. cp 15:[address] MD is Attending Physician. cp 16:08 Anabel Sanchez, MELISSA is Primary Nurse. aj1 16:13 Triage completed. aj1 16:17 Arm band placed on Patient placed in an exam room. aj1 16:19 Patient has correct armband on for positive identification. Bed in low position. Call aj1 light in reach. Side rails up X 1. 16:19 No provider procedures requiring assistance completed. aj1 16:49 CT Stone Protocol In Process Unspecified. EDMS 18:35 US Abdomen Limited: RUQ/epigastric area In Process Unspecified. EDMS 19:00 Pulse ox on. NIBP on. jb4 19:50 IV discontinued, intact, bleeding controlled. jb4 Administered Medications: 17:28 Drug: Zofran 4 mg Route: IVP; Site: right antecubital; aj1 18:54 Follow up: Response: No adverse reaction aj1 17:28 Drug: Bentyl 20 mg Route: PO; aj1 18:55 Follow up: Response: No adverse reaction aj1 18:54 Drug: Flexeril 10 mg Route: PO; aj1 Outcome: 19:04 Discharge ordered by . robin 19:50 Discharged to home ambulatory. jb4 19:50 Condition: stable 19:50 Discharge instructions given to patient, Instructed on discharge instructions, follow up and referral plans. medication usage, Demonstrated understanding of instructions, follow-up care, medications, Prescriptions given X 2. 19:56 Patient left the ED. jb4 Signatures: Dispatcher [employer] EDAnabel Cox, RN RN aj1 Ann Ny Corey, PA PA cp Bryson, James, RN RN jb4
--- NOTE | 2018-06-12 19:05 | EDPHYS ---
Physician Documentation [facility] Name: Jessenia Klein Age: 52 yrs Sex: Female : 1965 Arrival Date: 06/12/2018 Time: 15:57 Bed 13 Private MD: Denzel Maddox ED Physician Hans Lane HPI: 06/12 16:38 This 52 yrs old Female presents to ER via Ambulatory with complaints of Flank cp Pain. 16:38 The patient complains of pain in the left low back and left mid back. Onset: The cp symptoms/episode began/occurred 2 week(s) ago. Associated signs and symptoms: Pertinent positives: left side abdominal pain. 16:38 Severity of pain: in the emergency department the pain is unchanged despite home cp interventions. 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 - Social history:: Smoking status: Patient/guardian denies using tobacco. - Ebola Screening: : Patient denies travel to an Ebola-affected area in the 21 days before illness onset. ROS: 16:45 Constitutional: Negative for body aches, chills, fever, poor PO intake. cp 16:45 Eyes: Negative for injury, pain, redness, and discharge. cp 16:45 ENT: Negative for drainage from ear(s), ear pain, sore throat, difficulty swallowing, difficulty handling secretions. 16:45 Cardiovascular: Negative for chest pain, edema, palpitations. 16:45 Respiratory: Negative for cough, shortness of breath, wheezing. 16:45 Abdomen/GI: Positive for abdominal pain, rectal pain, of the left upper quadrant and left lower quadrant, Negative for nausea, vomiting, and diarrhea, anorexia, black/tarry stool, rectal bleeding. 16:45 Back: Positive for pain at rest, pain with movement, of the left low back and left mid back, Negative for injury or acute deformity, decreased range of motion. 16:45 : Negative for urinary symptoms, vaginal bleeding. 16:45 Skin: Negative for cellulitis, rash. 16:45 Neuro: Negative for altered mental status, headache, weakness. 16:45 All other systems are negative. Exam: 16:50 Constitutional: The patient appears in no acute distress, alert, awake, cp non-diaphoretic, non-toxic, well developed, well nourished, uncomfortable. 16:50 Head/Face: Normocephalic, atraumatic. cp 16:50 Eyes: Pupils equal round and reactive to light, extra-ocular motions intact. Lids and cp lashes normal. Conjunctiva and sclera are non-icteric and not injected. Cornea within normal limits. Periorbital areas with no swelling, redness, or edema. ENT: Nares patent. No nasal discharge, no septal abnormalities noted. Tympanic membranes are normal and external auditory canals are clear. Oropharynx with no redness, swelling, or masses, exudates, or evidence of obstruction, uvula midline. Mucous membranes moist. 16:50 Chest/axilla: Inspection: normal, Palpation: is normal, no crepitus, no tenderness. 16:50 Cardiovascular: Rate: normal, Rhythm: regular, Edema: is not appreciated, JVD: is not appreciated. 16:50 Respiratory: the patient does not display signs of respiratory distress, Respirations: cp normal, no use of accessory muscles, no retractions, no splinting, no tachypnea, labored breathing, is not present, Breath sounds: are clear throughout, no decreased breath sounds, no stridor, no wheezing. 16:50 Abdomen/GI: Inspection: abdomen appears normal, Bowel sounds: active, all quadrants, Palpation: soft, in all quadrants, mild abdominal tenderness, in the left upper quadrant and left lower quadrant. 16:50 Back: pain, that is moderate, of the left low back and left mid back, ROM is painful, vertebral tenderness, is not appreciated, Straight leg raises: of both lower extremities does not illicit pain. 16:50 Skin: cellulitis, is not appreciated, no rash present. 16:50 Neuro: Orientation: to person, place \T\ time. Mentation: is normal, Motor: moves all fours, strength is normal, Sensation: no obvious gross deficits, Gait: is steady. Vital Signs: 16:16 BP 141 / 85; Pulse 85; Resp 18; Temp 97.2(TE); Pulse Ox 97% on R/A; Weight 88.45 kg aj1 (R); Height 5 ft. 5 in. (165.10 cm) (R); Pain 7/10; 18:13 BP 128 / 80; Pulse 87; Resp 18; Pulse Ox 100% on R/A; aj1 19:30 BP 125 / 77; Pulse 70; Resp 18; Pulse Ox 99% on R/A; jb4 16:16 Body Mass Index 32.45 (88.45 kg, 165.10 cm) aj1 MDM: 15:59 Patient medically screened. cp 17:00 Differential diagnosis: nephrolithiasis, pyelonephritis, UTI, diverticulitis, cp pancreatitis, ruptured AAA, dissecting AAA. 19:00 Data reviewed: vital signs, nurses notes, lab test result(s), radiologic studies, CT cp scan. 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 Response to treatment: the patient's symptoms have mildly improved after treatment, and as a result, I will discharge patient. Special discussion: Based on the patient's Hx, exam, and Dx evaluation, there is no indication for emergent surgery or inpatient Tx. It is understood by the patient/guardian that if the Sx's persist or worsen they need to return immediately for re-evaluation. ED course: VSS. CT abdomen/pelvis negative for acute findings. Will discharge to home for continued monitoring. 06/12 16:28 Order name: Basic Metabolic Panel; Complete Time: 17:59 cp 06/12 18:00 Interpretation: Normal except: GLUC 224; BUN 21; GFR 65. cp 06/12 16:28 Order name: CBC with Diff; Complete Time: 17:59 cp 06/12 18:00 Interpretation: Normal except: WBC 12.1; LYM% 46.5; LYMA 5.6. 06/12 16:28 Order name: Creatinine for Radiology; Complete Time: 17:59 cp 06/12 16:28 Order name: Hepatic Function; Complete Time: 17:59 cp 06/12 16:28 Order name: Lipase; Complete Time: 17:59 cp 06/12 16:28 Order name: Urine Microscopic Only; Complete Time: 18:55 cp 06/12 18:55 Interpretation: Normal except: SQEPI 20-50. 06/12 16:28 Order name: IV Saline Lock; Complete Time: 17:17 cp 06/12 16:28 Order name: Magnesium; Complete Time: 17:59 cp 06/12 16:28 Order name: CT Stone Protocol; Complete Time: 17:08 cp 06/12 17:09 Interpretation: Report reviewed. 06/12 17:59 Order name: Urine Dipstick--Ancillary (enter results); Complete Time: 18:55 eb 06/12 18:56 Interpretation: Normal except: UGLUC 2+. 06/12 18:03 Order name: US Abdomen Limited: RUQ/epigastric area 06/12 16:28 Order name: Labs collected and sent; Complete Time: 17:17 cp 06/12 16:28 Order name: Urine Dipstick-Ancillary (obtain specimen); Complete Time: 17:28 cp Administered Medications: 17:28 Drug: Zofran 4 mg Route: IVP; Site: right antecubital; aj1 18:54 Follow up: Response: No adverse reaction aj1 17:28 Drug: Bentyl 20 mg Route: PO; aj1 18:55 Follow up: Response: No adverse reaction aj1 18:54 Drug: Flexeril 10 mg Route: PO; aj1 Disposition: 06/12/18 19:04 Discharged to Home. Impression: Low back pain - Low, Other abdominal pain - Left. - Condition is Stable. - Discharge Instructions: Abdominal Pain, Adult, Back Pain, Adult, Back Exercises, [id number]. - Prescriptions for Bentyl 20 mg Oral Tablet - take 2 tablet by ORAL route every 6 hours As needed; 40 tablet. Zofran 4 mg Oral Tablet - take 1 tablet by ORAL route every 12 hours As needed; 20 tablet. - Medication Reconciliation Form, Thank You Letter, Antibiotic Education, Prescription Opioid Use form. - Follow up: Private Physician; When: Tomorrow; Reason: Recheck today's complaints. - Problem is new. - Symptoms have improved. Addendum: 06/14/2018 13:32 Co-signature as Attending Physician, Hans Lane MD I agree with the assessment and k plan of care. Signatures: Dispatcher [employer] EDMS Anabel Sanchez RN RN aj1 Hans Lane MD MD kdr Chi Mckinney PA PA cp Alex Smith, RN RN jb4 Corrections: (The following items were deleted from the chart) 06/12 17:27 16:28 Urine Test ordered. cp aj1 18:00 18:00 Normal except: WBC 12.1; LYM% 46.5. cp cp 19:56 19:04 06/12/2018 19:04 Discharged to Home. Impression: Low back pain - Low; Other jb4 abdominal pain - Left. Condition is Stable. Forms are Medication Reconciliation Form, Thank You Letter, Antibiotic Education, Prescription Opioid Use. Follow up: Private Physician; When: Tomorrow; Reason: Recheck today's complaints. Problem is new. Symptoms have improved. cp
[2018-06-12 20:12] VITALS: TEMP 97.2
[2018-06-12 20:14] VITALS: BP 128/80; O2SAT 100
--- NOTE | 2018-06-12 20:28 | RAD REPORT ---
EXAM DESCRIPTION: US - Abdomen Exam Limited - 06/12/2018 6:35 pm CLINICAL HISTORY: Right upper quadrant pain COMPARISON: CT imaging June 2011 FINDINGS: No gallstones, sludge or other abnormalities within the gallbladder lumen. Gallbladder is partially contracted. There is no wall thickening or pericholecystic fluid. No common duct stone or biliary tree dilatation identified. IMPRESSION: No gallbladder or biliary tree abnormality identifiable.
== END 2018-06-12 19:56 | disposition home or self-care (01) ==
LOC: ER 15:55
DX: R10.9 Unspecified abdominal pain (principal); I10 Essential (primary) hypertension; E78.5 Hyperlipidemia, unspecified; E11.9 Type 2 diabetes mellitus without complications; F41.9 Anxiety disorder, unspecified; Z85.528 Personal history of other malignant neoplasm of kidney; Z79.4 Long term (current) use of insulin; Z88.5 Allergy status to narcotic agent
CPT/HCPCS: 36415; 74176; 76377; 76705; 80048; 80076; 81003; 81015; 83690; 83735; 85025; 96374; 99284; J2405

== ENCOUNTER 2018-06-29 16:11 | Emergency (ER) | payer OTHER ==
[2018-06-29 16:32] LABS: Absolute Lymphocytes (CBC) 6.8 K/uL (0.7-4.9); Absolute Monocytes 0.6 K/uL (0.1-1.3); Absolute Neutrophil 7.9 K/uL (1.8-8.0); Basophils % 0.6 % (0-1.3); Eosinophils % 0.9 % (0-4.4); Hematocrit 39.4 % (36.0-45.0); MCH 30.4 pg (27.0-35.0); MCV 89.6 fL (80-100); MPV 7.9 fL (7.6-11.3); Monocytes % 3.7 % (3.3-12.3)
[2018-06-29 16:37] LABS: Protime INR 1.1
[2018-06-29] MEDS ORDERED: NA CHLORIDE 0.9% 1,000 ML ONE (16:37)
[2018-06-29] MEDS ORDERED: ONDANSETRON 4 MG/2 ML VIAL ONE (16:37)
[2018-06-29] MEDS ORDERED: LORazepam 2 MG/ML VIAL ONE (16:44)
[2018-06-29] MEDS ORDERED: FOLIC ACID 1 MG, MULTIVITAMINS INJ 10 ML, THIAMINE HCL 100 MG in NA CHLORIDE 0.9% 1,000 ML IV SCH (17:00)
[2018-06-29 17:09] LABS: ALT/SGPT 38 U/L (12-78); AST/SGOT 15 U/L (15-37); Albumin 3.6 g/dL (3.4-5.0); Alkaline Phosphatase 136 U/L (45-117); BUN Blood Urea Nitrogen 14 mg/dL (7-18); Bicarbonate 23 mmol/L (21-32); Bilirubin Direct < 0.1 mg/dL (0-0.2); Bilirubin Total 0.1 mg/dL (0.2-1.0); Glucose Level 193 mg/dL (74-106); Potassium 3.7 mmol/L (3.5-5.1); Protein, Total 7.1 g/dL (6.4-8.2); Sodium Level 143 mmol/L (136-145)
--- NOTE | 2018-06-29 17:53 | RAD REPORT ---
EXAM DESCRIPTION: CT - [id number] - 06/29/2018 5:39 pm CLINICAL HISTORY: Altered mental status, found on ground, head and neck injury COMPARISON: CT head and cervical March 2018 TECHNIQUE: Axial 5 mm thick images of the head were obtained. Axial 2 mm thick images of the cervic al spine were obtained with sagittal and coronal reconstruction images generated and reviewed. All CT scans are performed using dose optimization technique as appropriate and may include automated exposure control or mA/KV adjustment according to patient size. FINDINGS: No intracranial hemorrhage, mass, edema or acute intracranial finding. No suspicion for acute infarct ion. No extra-axial fluid collections. Mastoid air cells and paranasal sinuses are clear. No globe or orbit abnormality seen. CT head findings are stable from March. Cervical body height and alignment are normal. Significant C5-6 and C6-7 disc and endplate degenerati ve changes are present. Central spinal stenosis is present. There is bilateral bony foraminal encroac hment at these 2 levels. No fracture or acute bony abnormality. No significant change from comparison . No paraspinal mass or hematoma. IMPRESSION: Negative CT head examination for acute or significant finding. No significant change fro m comparison. Negative CT cervical spine examination for acute finding. Prominent C5-6 and C6-7 degenerative disc and endplate changes similar to March comparison. Patient has bilateral foraminal stenosis and central spinal stenosis at these levels.
--- NOTE | 2018-06-29 18:46 | ER ---
Nurse's Notes [facility] Name: Jessenia Klein Age: 52 yrs Sex: Female : 1965 Arrival Date: 06/29/2018 Time: 16:14 Bed 4 Private MD: Diagnosis: Alcohol use, unspecified with intoxication, unspecified Presentation: 06/29 16:09 Transition of care: patient was not received from another setting of care. Onset of sv symptoms is unknown. Care prior to arrival: Medication(s) given: Thiamine 100 mg IV given IV initiated. 20 GA, in the left antecubital area, Glucose check: 229. 16:09 Method Of Arrival: EMS: [facility] sv 16:09 Acuity: JASMIN 3 sv 16:10 Presenting complaint: PER EMS "SHE WAS FOUND DOWN OUTSIDE HER TRAILER." PT STATES "I bp HURT IN MY HEART. HE SAID HE DOESN'T LOVE ME.". 16:10 Risk Assessment: Do you want to hurt yourself or someone else? Patient reports no bp desire to harm self or others. Initial Sepsis Screen: Does the patient meet any 2 criteria? Altered Mental Status. No. Patient's initial sepsis screen is negative. Does the patient have a suspected source of infection? No. Patient's initial sepsis screen is negative. Triage Assessment: 16:23 General: Appears distressed, comfortable, obese, unkempt, Behavior is agitated, drowsy, bp uncooperative, Smells of alcohol. Pain: Denies pain. 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 - Irregular menses bp Historical: - Allergies: 16:23 HYDROCODONE; bp - Home Meds: 16:23 alprazolam 0.5 mg Oral tab 1 tab as needed [Active]; Ambien 12.5 MG Oral 1 tab nightly bp [Active]; Creon 24,000-76,000 -120,000 unit Oral cpDR 3 times per day [Active]; Humalog Pen 14 units Sub-Q [Active]; Zoloft 100 mg Oral tab 2 tabs once daily [Active]; Valium 5 mg Oral tab as needed [Active]; Toujeo SoloStar 300 unit/mL (1.5 mL) subcutaneous inpn 50 unit daily [Active]; simvastatin 40 mg Oral tab 1 tab nightly [Active]; omeprazole 40 mg Oral cpDR 1 cap once daily [Active]; metformin 1,000 mg Oral TG24 1 tab 2 times per day [Active]; lisinopril 10 mg Oral tab 1 tab once daily [Active]; - PMHx: 16:23 Anxiety; Diabetes - IDDM; fatty liver; Hyperlipidemia; Hypertension; kidney cancer; bp - Immunization history:: Adult Immunizations up to date. - Social history:: Smoking status: Patient uses tobacco products, unknown amount Patient uses alcohol. - Ebola Screening: : Patient negative for fever greater than or equal to 101.5 degrees Fahrenheit, and additional compatible Ebola Virus Disease symptoms Patient denies exposure to infectious person Patient denies travel to an Ebola-affected area in the 21 days before illness onset No symptoms or risks identified at this time. Screenin:51 Abuse screen: Denies threats or abuse. Denies injuries from another. Nutritional bp screening: No deficits noted. Tuberculosis screening: No symptoms or risk factors identified. Fall Risk None identified. Assessment: 16:23 General: Appears distressed, comfortable, obese, Behavior is agitated, crying, drowsy, bp uncooperative. Pain: Unable to use pain scale. Does not appear to understand pain scale. Neuro: Level of Consciousness is confused, Oriented to person. Cardiovascular: Rhythm is sinus rhythm. Respiratory: Airway is patent Respiratory effort is even, unlabored, Respiratory pattern is regular, symmetrical. GI: No signs and/or symptoms were reported involving the gastrointestinal system. : No signs and/or symptoms were reported regarding the genitourinary system. EENT: No deficits noted. Derm: No deficits noted. Musculoskeletal: Circulation, motion, and sensation intact. Range of motion: intact in all extremities. 17:00 Reassessment: PT INCREASINGLY AGITATED, NOT FOLLOWING COMMANDS OR RESPONDING TO bp REDIRECTION. PROVIDER NOTIFIED. 18:00 Reassessment: PT AGITATED, SWINGING AND SCREAMING AT VISITOR AND STAFF. PT NOT bp RESPONDING TO VERBAL REDIRECTION. 19:07 Reassessment: PT D/C HOME WITH VIA W/C, DX WITH ALCOHOL INTOXICATION. bp Vital Signs: 16:23 BP 126 / 82; Pulse 72; Resp 16; Temp 97.9; Pulse Ox 95% ; Weight 90.72 kg; bp 16:45 BP 107 / 59; Pulse 71; Resp 17; Pulse Ox 99% on 2 lpm NC; bp 18:03 BP 132 / 83; Pulse 86; Resp 18; Pulse Ox 100% on 2 lpm NC; jb1 19:00 BP 143 / 89; Pulse 88; Resp 19; Pulse Ox 100% ; bp ED Course: 16:14 Patient arrived in ED. sv 16:15 Triage completed. sv 16:17 Cash Tracey MD is Attending Physician. gs 16:17 Derick Richter, MELISSA is Primary Nurse. bp 16:18 Darren Gustafson PA is PHCP. jr8 16:23 Maintain EMS IV. Dressing intact. Good blood return noted. Site clean \\T\\ dry. Gauge \\T\\ bp site: 20 GAUGE LEFT AC. Oxygen administration via nasal cannula \\T\\ 2L/min Response to oxygen therapy: symptoms improved. 16:23 Arm band placed on. bp 16:23 Patient has correct armband on for positive identification. Bed in low position. Call bp light in reach. Side rails up X2. sales and catering coordinator on. Pulse ox on. NIBP on. 16:34 Initial lab(s) drawn, by me, sent to lab. EKG done, by ED staff, reviewed by Darren jb1 Sj STRONG. 17:36 PHCP role handed off by Darren Gustafson PA jr8 17:36 Karolina Isbell FNP-C is PHCP. jr8 17:39 CT completed. Patient moved to CT via stretcher. cw1 17:40 CT Head C Spine In Process Unspecified. EDMS 19:08 No provider procedures requiring assistance completed. IV discontinued, intact, bp bleeding controlled, No redness/swelling at site. Pressure dressing applied. Administered Medications: 16:30 Drug: NS 0.9% 1000 ml Route: IV; Rate: 1000 ml; Site: left antecubital; bp 19:05 Follow up: IV Status: Completed infusion; IV Intake: 1000ml bp 16:53 Drug: Zofran 4 mg Route: IVP; Site: left antecubital; bp 16:58 Follow up: Response: Nausea is decreased bp 16:58 Drug: Banana Bag - (NS 0.9% 1000 ml, foLIC Acid 1 mg, Thiamine 100 mg, Multivitamin 1 bp amp) Route: IV; Rate: calculated rate; Site: left antecubital; 19:05 Follow up: IV Status: Completed infusion bp 17:15 Drug: Ativan 1 mg Route: IVP; Site: left antecubital; bp 19:05 Follow up: Response: Anxiety decreased bp 17:45 Drug: Ativan 1 mg Route: IVP; Site: left antecubital; bp 19:07 Follow up: Response: Anxiety decreased bp Intake: 19:05 IV: 1000ml; Total: 1000ml. bp Outcome: 18:46 Discharge ordered by . snnanette 19:07 Discharged to home ambulatory, via wheelchair. bp 19:07 Condition: stable 19:07 Discharge instructions given to patient, family, Instructed on discharge instructions, follow up and referral plans. medication usage, Demonstrated understanding of instructions, follow-up care, medications, Prescriptions given X 1. 19:09 Patient left the ED. bp Signatures: Dispatcher [employer] EDMS Flavio Peña jb1 Tia Vu, MELISSA RN sv Karolina Isbell, PRODUCTION CONTROL CLERK-C PRODUCTION CONTROL CLERK-Satishw Harriet Skinner 1 Darren Gustafson PA PA jr8 Cash Tracey MD MD gs Peltier, Brian, RN RN bp Corrections: (The following items were deleted from the chart) 16:15 16:09 Care prior to arrival: IV initiated. 20 GA, in the left antecubital area, Glucose sv check: 229 sv 16:49 16:23 90.72 kg; bp bp
--- NOTE | 2018-06-29 18:46 | EDPHYS ---
Physician Documentation [facility] Name: Jessenia Klein Age: 52 yrs Sex: Female : 1965 Arrival Date: 06/29/2018 Time: 16:14 Bed 4 Private MD: ED Physician Cash Tracey HPI: 06/29 16:45 This 52 yrs old Female presents to ER via EMS with complaints of Unresponsive.jr8 16:45 Patient came in via EMS after being found down outside her RV. EMS stated that the RV [address] place found her and called 911. Patient alert to person only upon arrival. Patient smells of alcohol. Slurring her words. Repeating that "he broke her heart". . Severity of symptoms: At their worst the symptoms were moderate in the emergency department the symptoms are unchanged. It is unknown whether or not the patient has had similar symptoms in the past. It is unknown whether or not the patient has recently seen a physician. 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 - Irregular menses bp Historical: - Allergies: 16:23 HYDROCODONE; bp - Home Meds: 16:23 alprazolam 0.5 mg Oral tab 1 tab as needed [Active]; Ambien 12.5 MG Oral 1 tab nightly bp [Active]; Creon 24,000-76,000 -120,000 unit Oral cpDR 3 times per day [Active]; Humalog Pen 14 units Sub-Q [Active]; Zoloft 100 mg Oral tab 2 tabs once daily [Active]; Valium 5 mg Oral tab as needed [Active]; Toujeo SoloStar 300 unit/mL (1.5 mL) subcutaneous inpn 50 unit daily [Active]; simvastatin 40 mg Oral tab 1 tab nightly [Active]; omeprazole 40 mg Oral cpDR 1 cap once daily [Active]; metformin 1,000 mg Oral TG24 1 tab 2 times per day [Active]; lisinopril 10 mg Oral tab 1 tab once daily [Active]; - PMHx: 16:23 Anxiety; Diabetes - IDDM; fatty liver; Hyperlipidemia; Hypertension; kidney cancer; bp - Immunization history:: Adult Immunizations up to date. - Social history:: Smoking status: Patient uses tobacco products, unknown amount Patient uses alcohol. - Ebola Screening: : Patient negative for fever greater than or equal to 101.5 degrees Fahrenheit, and additional compatible Ebola Virus Disease symptoms Patient denies exposure to infectious person Patient denies travel to an Ebola-affected area in the 21 days before illness onset No symptoms or risks identified at this time. ROS: 16:45 Unable to obtain ROS due to altered mental status. jr8 18:47 Constitutional: Negative for fever, chills, and weight loss, Eyes: Negative for injury, snw pain, redness, and discharge, ENT: Negative for injury, pain, and discharge, Neck: Negative for injury, pain, and swelling, Cardiovascular: Negative for chest pain, palpitations, and edema, Respiratory: Negative for shortness of breath, cough, wheezing, and pleuritic chest pain, Abdomen/GI: Negative for abdominal pain, nausea, vomiting, diarrhea, and constipation, Back: Negative for injury and pain, : Negative for injury, bleeding, discharge, and swelling, MS/Extremity: Negative for injury and deformity, Skin: Negative for injury, rash, and discoloration. 18:47 Neuro: Positive for anxiety and intoxication. Exam: 16:45 Head/Face: Normocephalic, atraumatic. Eyes: Pupils equal round and reactive to light, jr8 extra-ocular motions intact. Lids and lashes normal. Conjunctiva and sclera are non-icteric and not injected. Cornea within normal limits. Periorbital areas with no swelling, redness, or edema. ENT: Nares patent. No nasal discharge, no septal abnormalities noted. Tympanic membranes are normal and external auditory canals are clear. Oropharynx with no redness, swelling, or masses, exudates, or evidence of obstruction, uvula midline. Mucous membranes moist. Neck: Trachea midline, no thyromegaly or masses palpated, and no cervical lymphadenopathy. Supple, full range of motion without nuchal rigidity, or vertebral point tenderness. No Meningismus. Cardiovascular: Regular rate and rhythm with a normal S1 and S2. No gallops, murmurs, or rubs. Normal PMI, no JVD. No pulse deficits. Respiratory: Lungs have equal breath sounds bilaterally, clear to auscultation and percussion. No rales, rhonchi or wheezes noted. No increased work of breathing, no retractions or nasal flaring. Abdomen/GI: Soft, non-tender, with normal bowel sounds. No distension or tympany. No guarding or rebound. No evidence of tenderness throughout. Back: No spinal tenderness. No costovertebral tenderness. Full range of motion. Skin: Warm, dry with normal turgor. Normal color with no rashes, no lesions, and no evidence of cellulitis. MS/ Extremity: Pulses equal, no cyanosis. Neurovascular intact. Full, normal range of motion. 16:45 Neuro: Orientation: to person, Mentation: able to follow commands, slow to respond, confused, Memory: immediate memory is intact, remote memory is impaired, recent memory is impaired, Cranial nerves: CN I not tested, CN II- XII are normal as tested, extraocular movements are intact, Speech is slowed, slurred, Tongue strength is normal, Cerebellar function: unable to test, Motor: moves all fours, Sensation: no obvious gross deficits, Gait: not tested. seizure activity, is not displayed by the patient, Abnormal movements: there are no abnormal movements. Vital Signs: 16:23 BP 126 / 82; Pulse 72; Resp 16; Temp 97.9; Pulse Ox 95% ; Weight 90.72 kg; bp 16:45 BP 107 / 59; Pulse 71; Resp 17; Pulse Ox 99% on 2 lpm NC; bp 18:03 BP 132 / 83; Pulse 86; Resp 18; Pulse Ox 100% on 2 lpm NC; jb1 19:00 BP 143 / 89; Pulse 88; Resp 19; Pulse Ox 100% ; bp MDM: 16:37 Patient medically screened. [facility] 17:35 Data reviewed: vital signs, nurses notes, lab test result(s), EKG, radiologic studies, [facility] CT scan. Data interpreted: Pulse oximetry: on room air is 99 %. Interpretation: normal. Counseling: I had a detailed discussion with the patient and/or guardian regarding: the historical points, exam findings, and any diagnostic results supporting the discharge/admit diagnosis, lab results, radiology results. Transition of care: After a detail discussion of the patient's case, care is transferred to Karolina Isbell [facility]. 06/29 16:18 Order name: Acetaminophen; Complete Time: 17:17 jr8 06/29 16:18 Order name: Basic Metabolic Panel; Complete Time: 17:17 jr8 06/29 16:18 Order name: CBC with Diff; Complete Time: 16:37 jr8 06/29 16:18 Order name: ETOH Level; Complete Time: 17:17 06/29 16:18 Order name: Hepatic Function; Complete Time: 17:17 06/29 16:18 Order name: PT-INR; Complete Time: 16:49 06/29 16:18 Order name: Ptt, Activated; Complete Time: 16:49 06/29 16:18 Order name: Salicylate; Complete Time: 17:17 06/29 16:49 Order name: CT Head C Spine; Complete Time: 18:08 06/29 16:18 Order name: IV Saline Lock; Complete Time: 16:35 06/29 16:18 Order name: Labs collected and sent; Complete Time: 16:35 Administered Medications: 16:30 Drug: NS 0.9% 1000 ml Route: IV; Rate: 1000 ml; Site: left antecubital; bp 19:05 Follow up: IV Status: Completed infusion; IV Intake: 1000ml bp 16:53 Drug: Zofran 4 mg Route: IVP; Site: left antecubital; bp 16:58 Follow up: Response: Nausea is decreased bp 16:58 Drug: Banana Bag - (NS 0.9% 1000 ml, foLIC Acid 1 mg, Thiamine 100 mg, Multivitamin 1 bp amp) Route: IV; Rate: calculated rate; Site: left antecubital; 19:05 Follow up: IV Status: Completed infusion bp 17:15 Drug: Ativan 1 mg Route: IVP; Site: left antecubital; bp 19:05 Follow up: Response: Anxiety decreased bp 17:45 Drug: Ativan 1 mg Route: IVP; Site: left antecubital; bp 19:07 Follow up: Response: Anxiety decreased bp Disposition: 06/30 15:20 Co-signature as Attending Physician, Cash Tracey MD. Disposition: 06/29/18 18:46 Discharged to Home. Impression: Alcohol use, unspecified with intoxication, unspecified. - Condition is Stable. - Discharge Instructions: Alcohol Intoxication, What You Need to Know About Alcohol Abuse and Dependence, Youth. - Prescriptions for Zofran 4 mg Oral Tablet - take 1 tablet by ORAL route every 12 hours As needed; 20 tablet. - Medication Reconciliation Form, Thank You Letter, Antibiotic Education, Prescription Opioid Use form. - Follow up: Private Physician; When: 2 - 3 days; Reason: Recheck today's complaints, Continuance of care, Re-evaluation by your physician. Follow up: Emergency Department; When: As needed; Reason: Worsening of condition. Signatures: Dispatcher [employer] EDKarolina Linder, PLUMBING TECHNICIAN-C PLUMBING TECHNICIAN-Csnw Darren Gustafson PA PA jr8 Cash Tracey MD MD gs Peltier, Brian, RN RN bp Corrections: (The following items were deleted from the chart) 06/29 16:48 16:45 The patient has not experienced similar symptoms in the past, jr8 jr8 16:48 16:45 The patient has not recently seen a physician, jr8 jr8 19:09 18:46 06/29/2018 18:46 Discharged to Home. Impression: Alcohol use, unspecified with bp intoxication, unspecified. Condition is Stable. Forms are Medication Reconciliation Form, Thank You Letter, Antibiotic Education, Prescription Opioid Use. Follow up: Private Physician; When: 2 - 3 days; Reason: Recheck today's complaints, Continuance of care, Re-evaluation by your physician. Follow up: Emergency Department; When: As needed; Reason: Worsening of condition. snw
[2018-06-29 19:14] VITALS: TEMP 97.9
[2018-06-29 19:16] VITALS: O2SAT 100
[2018-06-29 19:17] VITALS: BP 143/89
--- NOTE | 2018-06-30 09:08 | EKG ---
Test Date: 2018-06-29 Test Time: 16:29:29 Nail Expert: TOO MEASUREMENT RESULTS: Intervals: Rate: 75 IA: 174 QRSD: 92 QT: 418 QTc: 466 [place]: P: 54 IA: 174 QRS: 11 T: 54 INTERPRETIVE STATEMENTS: Normal sinus rhythm Cannot rule out Anterior infarct, age undetermined Abnormal ECG No previous ECG available for comparison Electronically Signed On 06-30-18 09:08:06 CDT by Sabino Barrientos
== END 2018-06-29 19:09 | disposition home or self-care (01) ==
LOC: ER 16:11
DX: F10.129 Alcohol abuse with intoxication, unspecified (principal); I10 Essential (primary) hypertension; E78.5 Hyperlipidemia, unspecified; E11.9 Type 2 diabetes mellitus without complications; F41.9 Anxiety disorder, unspecified; Z72.0 Tobacco use; Z79.4 Long term (current) use of insulin; Z88.5 Allergy status to narcotic agent; Z85.528 Personal history of other malignant neoplasm of kidney
CPT/HCPCS: 36415; 70450; 72125; 80048; 80076; 80320; 80329; 82962; 85025; 85610; 85730; 93005; 96365; 96366; 96375; 99285; J2405; J3411; J7030

== ENCOUNTER 2018-06-30 15:29 | Emergency (ER) | payer OTHER ==
--- NOTE | 2018-06-30 16:54 | RAD REPORT ---
EXAM DESCRIPTION: RAD - Hand Left 3 View - 06/30/2018 4:44 pm CLINICAL HISTORY: PAIN History of fall COMPARISON: No comparisons FINDINGS: No fracture or dislocation seen. Mild radiocarpal arthritic changes.
--- NOTE | 2018-06-30 16:55 | RAD REPORT ---
EXAM DESCRIPTION: RAD - Hand Right 3 View - 06/30/2018 4:46 pm CLINICAL HISTORY: PAIN History of fall COMPARISON: No comparisons FINDINGS: Mild radiocarpal joint arthritic changes are present. No acute fracture or dislocation is seen.
--- NOTE | 2018-06-30 18:06 | ER ---
Nurse's Notes [facility] Name: Jessenia Klein Age: 52 yrs Sex: Female : 1965 Arrival Date: 06/30/2018 Time: 15:32 Bed Treatment Private MD: Diagnosis: Pain in hand and fingers-bilateral Presentation: 06/30 16:15 Presenting complaint: Patient states: " I fell yesterday and I hurt my L hand and then ph today I slammed my R hand in the bathroom door and hit my elbow.' Pt reports pain in drew hands and R elbow. Transition of care: patient was not received from another setting of care. Onset of symptoms was June 30, 2018. Risk Assessment: Do you want to hurt yourself or someone else? Patient reports no desire to harm self or others. Care prior to arrival: None. 16:15 Method Of Arrival: Ambulatory ph 16:15 Acuity: JASMIN 4 ph 19:34 Initial Sepsis Screen: Does the patient meet any 2 criteria? No. Patient's initial tl3 sepsis screen is negative. Does the patient have a suspected source of infection? No. Patient's initial sepsis screen is negative. Triage Assessment: 19:33 General: Appears distressed, uncomfortable, Behavior is anxious. Pain: Complains of tl3 pain in left hand and right hand. 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 - Social history:: Smoking status: Patient/guardian denies using tobacco. - Ebola Screening: : No symptoms or risks identified at this time. Screenin:32 Abuse screen: Denies threats or abuse. Nutritional screening: No deficits noted. tl3 Tuberculosis screening: No symptoms or risk factors identified. Fall Risk None identified. Vital Signs: 16:17 BP 154 / 93; Pulse 90; Resp 18; Temp 97.8; Pulse Ox 98% on R/A; Weight 90.72 kg; Height ph 5 ft. 6 in. (167.64 cm); Pain 8/10; 19:33 BP 194 / 101; Pulse 82; Resp 20; Pulse Ox 100% ; tl3 16:17 Body Mass Index 32.28 (90.72 kg, 167.64 cm) ph ED Course: 15:32 Patient arrived in ED. as 16:17 Triage completed. ph 16:18 Arm band placed on. Antipyretics given from triage as ordered by an ER provider. X-ray ph ordered. 16:44 XRAY Hand RIGHT 3 View In Process Unspecified. EDMS 16:44 XRAY Hand LEFT 3 View In Process Unspecified. EDMS 17:20 [facility]. snw 17:20 Cash Tracey MD is Attending Physician. snw 19:32 Patient has correct armband on for positive identification. tl3 19:32 No provider procedures requiring assistance completed. Patient did not have IV access tl3 during this emergency room visit. 19:33 Splint applied. tl3 Administered Medications: 19:31 Drug: fentaNYL (PF) 25 mcg Route: IM; Site: right gluteus; tl3 19:31 Follow up: Response: Medication administered at discharge. tl3 19:31 Drug: Valium 5 mg Route: PO; tl3 19:31 Follow up: Response: Medication administered at discharge. tl3 Outcome: 18:06 Discharge ordered by . snw 19:32 Discharged to home ambulatory. tl3 19:32 Condition: stable 19:32 Discharge instructions given to patient, family, Instructed on discharge instructions, follow up and referral plans. medication usage, Demonstrated understanding of instructions, follow-up care, medications, Prescriptions given X 1. 19:35 Patient left the ED. tl3 Signatures: Dispatcher [employer] EDMS Karolina Isbell FNP-C FNP-Ann Jones Patricia, RN RN Candis Weems RN RN tl3
--- NOTE | 2018-06-30 18:07 | EDPHYS ---
Physician Documentation [facility] Name: Jessenia Klein Age: 52 yrs Sex: Female : 1965 Arrival Date: 06/30/2018 Time: 15:32 Bed Treatment Private MD: ED Physician Cash Tracey HPI: 06/30 18:25 This 52 yrs old Female presents to ER via Ambulatory with complaints of Hand snw Pain. 18:25 The patient or guardian reports decreased range of motion, injury, pain. The complaints snw affect the right hand and left hand. Context: The problem was sustained inside, resulted from initially pt fell onto left wrist and then pulled drawer over right wrist and when she jumped back struck her right elbow on the doorframe. Onset: The symptoms/episode began/occurred suddenly, last night. Associated signs and symptoms: Pertinent positives: tingling distally. Severity of symptoms: At their worst the symptoms were moderate, severe. The patient has not experienced similar symptoms in the past. It is unknown whether or not the patient has recently seen a physician. 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 - Social history:: Smoking status: Patient/guardian denies using tobacco. - Ebola Screening: : No symptoms or risks identified at this time. ROS: 18:24 Constitutional: Negative for fever, chills, and weight loss, Eyes: Negative for injury, snw pain, redness, and discharge, ENT: Negative for injury, pain, and discharge, Neck: Negative for injury, pain, and swelling, Cardiovascular: Negative for chest pain, palpitations, and edema, Respiratory: Negative for shortness of breath, cough, wheezing, and pleuritic chest pain, Abdomen/GI: Negative for abdominal pain, nausea, vomiting, diarrhea, and constipation, Back: Negative for injury and pain, : Negative for injury, bleeding, discharge, and swelling, Skin: Negative for injury, rash, and discoloration, Neuro: Negative for headache, weakness, numbness, tingling, and seizure. 18:24 MS/extremity: Positive for injury or acute deformity, decreased range of motion, pain, of the bilateral wrists and right elbow. Exam: 18:22 Constitutional: This is a well developed, well nourished patient who is awake, alert, snw and in no acute distress. + anxiety Head/Face: Normocephalic, atraumatic. Eyes: Pupils equal round and reactive to light, extra-ocular motions intact. Lids and lashes normal. Conjunctiva and sclera are non-icteric and not injected. Cornea within normal limits. Periorbital areas with no swelling, redness, or edema. ENT: Nares patent. No nasal discharge, no septal abnormalities noted. Tympanic membranes are normal and external auditory canals are clear. Oropharynx with no redness, swelling, or masses, exudates, or evidence of obstruction, uvula midline. Mucous membranes moist. Neck: Trachea midline, no thyromegaly or masses palpated, and no cervical lymphadenopathy. Supple, full range of motion without nuchal rigidity, or vertebral point tenderness. No Meningismus. Chest/axilla: Normal chest wall appearance and motion. Nontender with no deformity. No lesions are appreciated. Cardiovascular: Regular rate and rhythm with a normal S1 and S2. No gallops, murmurs, or rubs. Normal PMI, no JVD. No pulse deficits. Respiratory: Lungs have equal breath sounds bilaterally, clear to auscultation and percussion. No rales, rhonchi or wheezes noted. No increased work of breathing, no retractions or nasal flaring. Abdomen/GI: Soft, non-tender, with normal bowel sounds. No distension or tympany. No guarding or rebound. No evidence of tenderness throughout. Back: No spinal tenderness. No costovertebral tenderness. Full range of motion. Skin: Warm, dry with normal turgor. Normal color with no rashes, no lesions, and no evidence of cellulitis. Neuro: Awake and alert, GCS 15, oriented to person, place, time, and situation. Cranial nerves II-XII grossly intact. Motor strength 5/5 in all extremities. Sensory grossly intact. Cerebellar exam normal. Normal gait. Psych: Awake, alert, with orientation to person, place and time. Behavior, mood, and affect are within normal limits. 18:22 Musculoskeletal/extremity: Extremities: grossly normal except: pt is holding bilateral hands rigidly in front of her, refusing to move. Encouraged ROM exercises and keeping wrists elevated, ROM: limited active range of motion due to pain, limited passive range of motion due to pain, Circulation is intact in all extremities. Sensation intact. Vital Signs: 16:17 BP 154 / 93; Pulse 90; Resp 18; Temp 97.8; Pulse Ox 98% on R/A; Weight 90.72 kg; Height ph 5 ft. 6 in. (167.64 cm); Pain 8/10; 19:33 BP 194 / 101; Pulse 82; Resp 20; Pulse Ox 100% ; tl3 16:17 Body Mass Index 32.28 (90.72 kg, 167.64 cm) ph MDM: 17:22 Patient medically screened. snw 18:25 Data reviewed: vital signs, nurses notes. Data interpreted: Pulse oximetry: on room air snw is 98 %. Interpretation: normal. Counseling: I had a detailed discussion with the patient and/or guardian regarding: the historical points, exam findings, and any diagnostic results supporting the discharge/admit diagnosis, the presence of at least one elevated blood pressure reading (>120/80) during this emergency department visit, radiology results, the need for outpatient follow up, to return to the emergency department if symptoms worsen or persist or if there are any questions or concerns that arise at home. Special discussion: I have referred the patient to see his PCP for further evaluation of high blood pressure. Based on the history and exam findings, there is no indication for further emergent testing or inpatient evaluation. I discussed with the patient/guardian the need to see the orthopedic surgeon for further evaluation of the symptoms. I discussed with the patient/guardian the need to see the primary care provider for further evaluation of the symptoms. 06/30 16:20 Order name: XRAY Hand RIGHT 3 View; Complete Time: 17:20 ph 06/30 16:20 Order name: XRAY Hand LEFT 3 View; Complete Time: 17:20 ph 06/30 18:04 Order name: Wrist Splint: velcro: bilateral; Complete Time: 19:10 snw Administered Medications: 19:31 Drug: fentaNYL (PF) 25 mcg Route: IM; Site: right gluteus; tl3 19:31 Follow up: Response: Medication administered at discharge. tl3 19:31 Drug: Valium 5 mg Route: PO; tl3 19:31 Follow up: Response: Medication administered at discharge. tl3 Disposition: 06/30/18 18:06 Discharged to Home. Impression: Pain in hand and fingers - bilateral. - Condition is Stable. - Discharge Instructions: Arthritis, Fall Prevention in the Home, Hypertension, Wrist Pain, Wrist Splint. - Prescriptions for Voltaren 1 % Topical gel - apply 2 gram by TOPICAL route 4 times per day; 50 gram. - Medication Reconciliation Form, Thank You Letter, Antibiotic Education, Prescription Opioid Use form. - Follow up: Private Physician; When: 2 - 3 days; Reason: Recheck today's complaints, Continuance of care, Re-evaluation by your physician. Follow up: Emergency Department; When: As needed; Reason: Worsening of condition. Addendum: 07/07/2018 11:48 Co-signature as Attending Physician, Cash Tracey MD. g s Signatures: Dispatcher [employer] EDMS Karolina Isbell, SALESPERSON BOOKS-C SALESPERSON BOOKS-Csnw Darren Gustafson PA PA jr8 Charu Mclean RN RN Cash Tracey MD MD Candis Weems, MELISSA RN tl3 Corrections: (The following items were deleted from the chart) 06/30 19:35 18:06 06/30/2018 18:06 Discharged to Home. Impression: Pain in hand and fingers - tl3 bilateral. Condition is Stable. Forms are Medication Reconciliation Form, Thank You Letter, Antibiotic Education, Prescription Opioid Use. Follow up: Private Physician; When: 2 - 3 days; Reason: Recheck today's complaints, Continuance of care, Re-evaluation by your physician. Follow up: Emergency Department; When: As needed; Reason: Worsening of condition. snw
[2018-06-30] MEDS ORDERED: DIAZEPAM 5 MG TABLET ONE (19:20)
[2018-06-30] MEDS ORDERED: FENTANYL CITR 100 MCG/2 ML ONE (19:21)
== END 2018-06-30 19:35 | disposition home or self-care (01) ==
LOC: ER 15:29
DX: M79.642 Pain in left hand (principal); M79.641 Pain in right hand; E11.9 Type 2 diabetes mellitus without complications; I10 Essential (primary) hypertension; Z85.528 Personal history of other malignant neoplasm of kidney
CPT/HCPCS: 96372; 99284; J3010